=== PATIENT | male | born 1975 | race Hispanic/Latino ===

== ENCOUNTER 2017-10-27 06:05 | Day surgery (SDC) | payer OTHER ==
[2017-10-26 15:18] VITALS: BP 133/85
[2017-10-26 15:20] LABS: BASOPHILS % (AUTO) 0.6 % (0.0-5.0); EOSINOPHILS % (AUTO) 4.3 % (0.0-8.0); HEMATOCRIT 50.5 % (42-54); LYMPHOCYTES % (AUTO) 26.1 % (21.0-51.0); MEAN CORPUSCULAR HGB CONC 34.5 g/dL (32.0-36.0); MEAN CORPUSCULAR VOLUME 87.1 fL (79-99); MONOCYTES % (AUTO) 9.9 % (3.0-13.0); NEUTROPHILS % (AUTO) 59.1 % (40.0-77.0); NUCLEATED RED BLOOD CELLS 0.2 % (0.0-0.19); PLATELET COUNT (AUTO) 253 K/uL (130-400); RED BLOOD CELL COUNT(AUTO) 5.79 MIL/uL (4.50-6.20); RED CELL DISTRIBUTION WIDTH 13.3 % (11.0-15.5); WHITE BLOOD COUNT (AUTO) 9.3 K/uL (4.8-10.8)
[2017-10-26 15:32] LABS: CREATININE 0.9 mg/dL (0.5-1.5); POTASSIUM 3.9 mmol/L (3.5-5.1)
[~2017-10-27] VITALS: Ht 177.8 cm; Wt 112.6 kg
[2017-10-27] VITALS (18 sets, daily range): BP systolic 120–154; BP diastolic 70–90
[2017-10-27] MEDS ORDERED: LACTATED RINGERS 1000ML 1,000 ML IV ONE (06:32)
[2017-10-27] MEDS: CEFAZOLIN SODIUM 1 GM VIAL ONE ×2 (06:58→08:30)
[2017-10-27] MEDS ORDERED: ONDANSETRON HCL 4 MG/2 ML VIAL ONE (08:31)
[2017-10-27] MEDS ORDERED: MIDAZOLAM HCL 1 MG/ML 2ML VIAL ONE (08:31)
[2017-10-27] MEDS ORDERED: LIDOCAINE PF 2% 5ML ABBOJECT ONE (08:31)
[2017-10-27] MEDS ORDERED: DEXAMETHASONE SOD PHOSPHATE 10MG/ML 1ML VIAL ONE (08:31)
[2017-10-27] MEDS ORDERED: FENTANYL CITRATE PF 50 MCG/1 ML 2ML VIAL ONE ×2 (08:31→08:56)
[2017-10-27] MEDS ORDERED: PROPOFOL 10 MG/ML 20ML VIAL IV ONE (08:31)
[2017-10-27] MEDS ORDERED: MEPERIDINE-PF 50 MG/ML SYG ONE ×2 (09:55→10:14)
[2017-10-27] MEDS ORDERED: ACETAMINOPHEN-CODEINE 300/30MG TAB ONE (11:34)
== END 2017-10-27 12:00 ==
LOC: DAH 06:05
PROVIDERS: ATTEND Orthopaedic Surgery
DX: M23.321 Other meniscus derangements, posterior horn of medial meniscus, right knee (principal); M17.11 Unilateral primary osteoarthritis, right knee; Z68.35 Body mass index [BMI] 35.0-35.9, adult; Z98.890 Other specified postprocedural states; Z79.899 Other long term (current) drug therapy; F17.210 Nicotine dependence, cigarettes, uncomplicated; E66.9 Obesity, unspecified; M22.41 Chondromalacia patellae, right knee; G89.29 Other chronic pain
CPT/HCPCS: 29881; 36415; 80048; 85025; A4218; A4606; A4649 ×2; A4930; A6223; J0690; J1100; J2001; J2175 ×2; J2250; J2405; J2704; J3010 ×2; J7030; J7120

== ENCOUNTER 2025-02-14 06:19 | Day surgery (SDC) | payer OTHER ==
[2025-02-12 11:10] LABS: BASOPHILS # (AUTO) 0.06 K/uL (0.00-0.20); BASOPHILS % (AUTO) 0.7 % (0.0-5.0); EOSINOPHILS # (AUTO) 0.42 K/uL (0.00-0.70); EOSINOPHILS % (AUTO) 5.1 % (0.0-8.0); HEMATOCRIT 45.8 % (42-54); IMMATURE GRANULOCYTE ABSOLUTE 0.04 K/uL (0-1); LYMPHOCYTES # (AUTO) 2.7 K/uL (1.0-4.8); LYMPHOCYTES % (AUTO) 32.5 % (21.0-51.0); MEAN CORPUSCULAR HEMOGLOBIN 30.6 pg (27.0-33.0); MEAN CORPUSCULAR HGB CONC 34.3 g/dL (32.0-36.0); MEAN CORPUSCULAR VOLUME 89.3 fL (79-99); MONOCYTES # (AUTO) 0.8 K/uL (0.1-1.0); MONOCYTES % (AUTO) 9.9 % (3.0-13.0); NEUTROPHILS # (AUTO) 4.2 K/uL (1.8-7.7); NEUTROPHILS % (AUTO) 51.3 % (40.0-77.0); PLATELET COUNT (AUTO) 234 K/uL (130-400); RED BLOOD CELL COUNT(AUTO) 5.13 MIL/uL (4.50-6.20); RED CELL DISTRIBUTION WIDTH 13.2 % (11.0-15.5); WHITE BLOOD COUNT (AUTO) 8.3 K/uL (4.8-10.8)
[2025-02-12 11:22] LABS: CREATININE 0.8 mg/dL (0.5-1.3); POTASSIUM 3.7 mmol/L (3.5-5.1)
[2025-02-12 12:06] VITALS: BP 164/86; PULSE 66; RESP 18; TEMP 97.9
[2025-02-14] VITALS (17 sets, daily range): BP systolic 143–164; BP diastolic 72–103; PULSE 63–89; RESP 17–20; TEMP 97–97.9
[~2025-02-14] VITALS: Ht 177.8 cm; Wt 124.7 kg
[2025-02-14] MEDS ORDERED: acetaMINOPHEN 100 ML ONE (07:02)
[2025-02-14] MEDS ORDERED: FAMOTIDINE 20MG VIAL IV ONE (07:02)
[2025-02-14] MEDS ORDERED: GABAPENTIN 300 MG CAPSULE ONE (07:02)
[2025-02-14] MEDS ORDERED: ketaMINE 50MG/ML SYRINGE 50 MG/ML DISP.SYRIN ONE (07:15)
[2025-02-14] MEDS ORDERED: LIDOCAINE PF 100MG/5ML (2%) SYRINGE 5ML ONE (07:17)
[2025-02-14] MEDS ORDERED: proPOFol 10 MG/ML 20ML VIAL IV ONE (07:18)
[2025-02-14] MEDS: LACTATED RINGERS 1000ML 1,000 ML IV ONE (07:18)
[2025-02-14] MEDS ORDERED: rocuRONium bROMide 10MG/1ML 5ML VL ONE (07:18)
[2025-02-14] MEDS ORDERED: FENTanyl CITRate PF 50 MCG/1 ML 2ML VIAL ONE (07:18)
[2025-02-14] MEDS: ceFAZolin SODIUM 1 GM VIAL ONE (07:19)
[2025-02-14] MEDS: ceFAZolin SODIUM 2 GM VIAL ONE (07:19)
[2025-02-14] MEDS ORDERED: MIDAZOLAM HCL 1 MG/ML 2ML VIAL ONE (07:50)
[2025-02-14] MEDS ORDERED: dexaMETHasone SOD PHOSPHATE 10MG/ML 1ML VIAL ONE ×2 (07:58→08:00)
[2025-02-14] MEDS ORDERED: ondanSETRON 4MG INJ ONE (07:58)
[2025-02-14] MEDS: ceFAZolin SODIUM 3 GM VIAL IVPB ONE (08:10)
[2025-02-14] MEDS ORDERED: TRAMADOL PO (09:01)
[2025-02-14] MEDS ORDERED: NEOSTIGMINE METHYLSULFATE 1MG/ML IV ONE (09:05)
[2025-02-14] MEDS ORDERED: GLYCOPYRROLATE 0.2 MG/ML 5 ML VIAL ONE (09:05)
[2025-02-14] MEDS ORDERED: MELO-108 PO (09:26)
[2025-02-14] MEDS ORDERED: ACET-2079 PO (09:26)
--- NOTE | 2025-02-14 09:39 | OP ---
Operative Note: DATE OF PROCEDURE: 02/14/25 SURGEON: NITESH WEST MD FLOAT PHLEBOTOMIST: [Rajesh Amaro CFA] ANESTHESIA: [General anesthesia] ANESTHESIOLOGIST/QUALITY CONTROL MICROBIOLOGY SUPERVISOR: [Maryjane Baker CRNA] PREOPERATIVE DIAGNOSIS: [Recurrent medial meniscal tear right knee] POSTOPERATIVE DIAGNOSIS: [Untable Bucket handle tear of the lateral meniscus right knee] PROCEDURE: [Right knee arthroscopy, partial lateral meniscectomy] ESTIMATED BLOOD LOSS: [Less than 10 mL] INDICATIONS: [49-year-old male with history of pain to the right knee after working on his yard kneeling sustaining significant pain after he got up. The p atient did not respond to conservative treatment and an MRI revealed the presence of worsening of the posterior horn medial meniscus where he had previous tear. Because of the lack of improvement the patient is brought to the operating room for arthroscopic procedure that he understood, risks, benefits and possible complications and agreed to sign the consent form] DESCRIPTION OF PROCEDURE: [After adequate general anesthesia was achieved the patient's lower extremity was prepped and draped in the usual manner previous placement of the tourniquet in the proximal thigh. The extremity was elevated and exsanguinated with an Esmarch band and the tourniquet was inflated to 250 mmHg the Esmarch band been then removed. The leg was brought to the side of the bed with the knee in 90 degrees of flexion and 2 small incisions were made medial and lateral to the patella tendon at the joint line level through the skin followed by blunt dissection with a trocar penetrating into the joint. Through the lateral portal the arthroscopic cannula was inserted and then after the cannula was removed the scope was inserted in the sheath bringing the knee on the table in extension placing the scope in the suprapatellar area which was noted to be normal with a normal quadriceps tendon and patellofemoral joint. 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 The knee was then brought into flexion on the side of the bed and the scope follow into the medial compartment where after valgus stress was done we were able to visualize the medial compartment and a the anterior horn and body of the meniscus looked normal and there were postoperative changes of the posterior horn of the meniscus missing most of this area and scar tissue present but no new tears were noted. We then proceeded to bring the scope to the intercondylar notch noticing that the ACL and PCL were normal but it was very obvious that the patient had a dislocated meniscus laterally with the fragment between the lateral femoral condyle and the ACL. This dislocated meniscus was easily reduced and we were then able to enter the lateral compartment which initially demonstrated a normal meniscus but when placing it in a [id number] position we were able to visualize the posterior horn of the meniscus and the popliteal hiatus dislocating into the intercondylar notch. The rest of the lateral compartment which show normal characteristics of the articular surface. With t he use of the meniscal shaver as well as an trimmers we proceeded to remove the posterior horn and posterior body of the torn by cutting 1st at the middle of the tear and then proceeded anteriorly with the use of the trimmers and then the shaver until we found meniscus well attached to the capsule anteriorly and then we proceeded to use treatment the posterior horn in the figure of 4 position and then in the extended position leaving hook stable tissue removing all the debris. The arthroscope was then removed from the joint as well as the fluid and we then proceeded to close the incisions with #3-0 nylon simple stitches. A soft dressing was applied to cover the small incisions followed by application of an Pedro bandage. The drapes were then removed after the tourniquet was deflated and the patient was transferred to the stretcher and then taken to recovery room for follow-up by anesthesia. There were no complications during the procedure.] NITESH WEST MD February 14, 2025 09:39
--- NOTE | 2025-02-14 11:01 | NUR ---
Full and complete discharge instructions given to Patient and Family both verbally and in writing. Explained SURGICAL procedure precautions and follow up. Voided large amount in bathroom. Remains neurovascularly intact. All questions answered. PIV removed with catheter tip intact. Home with Family W/C to POV.
== END 2025-02-14 11:00 | disposition home or self-care (01) ==
LOC: DAH 06:19
PROVIDERS: ATTEND Orthopaedic Surgery
DX: S83.251A Bucket-handle tear of lateral meniscus, current injury, right knee, initial encounter (principal); M25.561 Pain in right knee; E66.9 Obesity, unspecified; Z80.9 Family history of malignant neoplasm, unspecified; Z79.899 Other long term (current) drug therapy; Z98.890 Other specified postprocedural states; Z83.3 Family history of diabetes mellitus; Z82.49 Family history of ischemic heart disease and other diseases of the circulatory system; Z68.38 Body mass index [BMI] 38.0-38.9, adult; X58.XXXA Exposure to other specified factors, initial encounter; Y93.89 Activity, other specified; Y92.096 Garden or yard of other non-institutional residence as the place of occurrence of the external cause; Y99.8 Other external cause status
CPT/HCPCS: 80048; 85025; 36415; 29881; A4663; J7120 ×2; A4649 ×2; J0690 ×3; J3490 ×4; J3010; J1100 ×2; J2003; J2250; J2704; J2405; J2710; A6223; A4930; A5120; A4215; A4223; A4222; A4221; A6450